=== PATIENT | female | born 1970 | race Hispanic/Latino ===

== ENCOUNTER → 2017-12-11 | Outpatient (CLI) | payer BC ==
[~2017-12-11] MED LIST: IOPAMIDOL-370 100 ML VIAL IV ONE
== END | disposition home or self-care (01) ==
LOC: RAH 09:05
PROVIDERS: ATTEND Obstetrics & Gynecology
DX: R31.21 Asymptomatic microscopic hematuria (principal)
CPT/HCPCS: 74400; Q9967

== ENCOUNTER 2019-11-20 13:14 | Emergency (ER) | payer BC ==
[2019-11-20] MEDS ORDERED: CEFTRIAXONE SODIUM 2 GM VIAL ONE (14:30)
[2019-11-20] MEDS ORDERED: SODIUM CHLORIDE 0.9% 1000ML 1,000 ML IV ONE (14:31)
[2019-11-20] MEDS ORDERED: SODIUM CHLORIDE 0.9% 100 ML IV ONE (14:31)
[2019-11-20 15:02] LABS: BASOPHILS % (AUTO) 1.1 % (0.0-5.0); EOSINOPHILS % (AUTO) 1.7 % (0.0-8.0); LYMPHOCYTES % (AUTO) 41.2 % (21.0-51.0); MEAN CORPUSCULAR VOLUME 91.1 fL (79-99); MONOCYTES % (AUTO) 7.1 % (3.0-13.0); NEUTROPHILS % (AUTO) 48.7 % (40.0-77.0); PLATELET COUNT (AUTO) 225 K/uL (130-400); RED BLOOD CELL COUNT(AUTO) 4.39 MIL/uL (4.00-5.50); WHITE BLOOD COUNT (AUTO) 5.4 K/uL (4.8-10.8)
[2019-11-20 15:20] LABS: INR 0.93 (0.85-1.15); PROTHROMBIN TIME 10.1 SEC (9.6-11.6)
[2019-11-20 15:34] LABS: CREATININE 0.9 mg/dL (0.5-1.5); POTASSIUM 3.8 mmol/L (3.5-5.1)
[2019-11-20 15:39] LABS: ALBUMIN 3.7 g/dL (3.5-5.0); BILIRUBIN,DIRECT 0.1 mg/dL (0.0-0.3); BILIRUBIN,TOTAL 0.2 mg/dL (0.2-1.0); TOTAL PROTEIN, SERUM 7.1 g/dL (6.0-8.3)
== END 2019-11-20 17:55 | disposition home or self-care (01) ==
LOC: EDH 13:14
DX: B34.9 Viral infection, unspecified (principal); R53.1 Weakness; Z20.828 Contact with and (suspected) exposure to other viral communicable diseases; Z88.5 Allergy status to narcotic agent; Z90.49 Acquired absence of other specified parts of digestive tract; Z90.710 Acquired absence of both cervix and uterus; Z88.8 Allergy status to other drugs, medicaments and biological substances
CPT/HCPCS: 36415; 71045; 80048; 80076; 82550; 83605; 84484; 85025; 85610; 85730; 87040 ×2; 87633; 87635; 87804 ×2; 93005; 96374; 99285; J0696; J7030; 96372

== ENCOUNTER → 2019-12-24 | Outpatient (CLI) | payer BC | END | disposition home or self-care (01) | LOC: RAH 12:54 | PROVIDERS: ATTEND Family Medicine | DX: M19.011 Primary osteoarthritis, right shoulder (principal); M47.22 Other spondylosis with radiculopathy, cervical region; M25.78 Osteophyte, vertebrae | CPT/HCPCS: 72141; 73221 ==

== ENCOUNTER → 2020-01-27 | Outpatient (CLI) | payer BC | END | disposition home or self-care (01) | LOC: RAH 13:57 | PROVIDERS: ATTEND Otolaryngology Plastic Surgery within the Head & Neck | DX: E04.1 Nontoxic single thyroid nodule (principal) ==

== ENCOUNTER 2020-02-22 16:50 | Emergency (ER) | payer BC ==
[2020-02-22] MEDS ORDERED: ALBUTEROL INHALER 90MCG/INH IH ONE (17:13)
[2020-02-22] MEDS ORDERED: AZITHROMYCIN 250 MG TABLET PO ONE (17:14)
[2020-02-22] MEDS ORDERED: ACETAMINOPHEN EXTRA STRENGTH 500 MG TABLET ONE (17:14)
== END 2020-02-22 17:38 | disposition home or self-care (01) ==
LOC: EDH 16:50
DX: U07.1 COVID-19 (principal); E78.00 Pure hypercholesterolemia, unspecified; Z88.6 Allergy status to analgesic agent; Z88.8 Allergy status to other drugs, medicaments and biological substances; Z98.51 Tubal ligation status; Z90.710 Acquired absence of both cervix and uterus

== ENCOUNTER → 2020-06-09 | Outpatient (CLI) | payer BC | END | disposition home or self-care (01) | LOC: RAH 14:03 | PROVIDERS: ATTEND Orthopaedic Surgery | DX: M75.101 Unspecified rotator cuff tear or rupture of right shoulder, not specified as traumatic (principal); M25.511 Pain in right shoulder | CPT/HCPCS: 73221 ==

== ENCOUNTER 2020-09-12 18:40 | Emergency (ER) | payer BC ==
[2020-09-12] MEDS ORDERED: HYDROCODONE/ACETAMINOPHEN 10/325 MG TAB ONE (19:22)
== END 2020-09-12 20:01 | disposition home or self-care (01) ==
LOC: EDH 18:40
DX: S83.92XA Sprain of unspecified site of left knee, initial encounter (principal); Z88.8 Allergy status to other drugs, medicaments and biological substances; Z88.5 Allergy status to narcotic agent; Z90.49 Acquired absence of other specified parts of digestive tract; Z90.710 Acquired absence of both cervix and uterus; W18.39XA Other fall on same level, initial encounter; Y93.55 Activity, bike riding; Y92.89 Other specified places as the place of occurrence of the external cause; Y99.8 Other external cause status
CPT/HCPCS: 29505; 73562; 73590

== ENCOUNTER 2022-01-01 09:29 | Emergency (ER) | payer BC ==
[~2022-01-01] VITALS: Ht 160 cm; Wt 79.4 kg
[2022-01-01] MEDS ORDERED: IPRATROPIUM/ALBUTEROL SULFATE 3 ML SOLUTION IH ONE (10:00)
[2022-01-01] MEDS ORDERED: SOLU-MEDROL 125MG VIAL IVP ONE (10:00)
[2022-01-01 10:33] LABS: INFLUENZA TYPE A NEGATIVE FOR TYPE A (NEG)
[2022-01-01 10:34] LABS: INFLUENZA TYPE B NEGATIVE FOR TYPE B (NEG)
[2022-01-01] MEDS ORDERED: ALBU4TAB12 PO (11:23)
[2022-01-01] MEDS ORDERED: MONT-39 PO (11:23)
[2022-01-01] MEDS ORDERED: PRED5TAB PO (11:23)
[2022-01-01 14:54] VITALS: BP 129/75
== END 2022-01-01 15:05 | disposition home or self-care (01) ==
LOC: EDH 09:29
DX: J06.9 Acute upper respiratory infection, unspecified (principal); J45.909 Unspecified asthma, uncomplicated; Z20.822 Contact with and (suspected) exposure to COVID-19; Z88.5 Allergy status to narcotic agent; Z86.16 Personal history of COVID-19
CPT/HCPCS: 71045; 87635; 87804 ×2; 87880; 94640; 96374; 99284; C9803; J2930

== ENCOUNTER 2022-02-10 22:21 | Emergency (ER) | payer BC ==
[~2022-02-10] VITALS: Ht 160 cm; Wt 79.4 kg
[~2022-02-10 22:21] MED LIST changes: +ALBU4TAB12 PO; -IOPAMIDOL-370 100 ML VIAL IV ONE; +MONT-39 PO; +PRED5TAB PO
[2022-02-10 22:58] LABS: BASOPHILS % (AUTO) 0.8 % (0.0-5.0); EOSINOPHILS % (AUTO) 0.8 % (0.0-8.0); HEMATOCRIT 39.5 % (36-48); LYMPHOCYTES % (AUTO) 13.6 % (21.0-51.0); MEAN CORPUSCULAR HEMOGLOBIN 30.3 pg (27.0-33.0); MEAN CORPUSCULAR HGB CONC 33.2 g/dL (32.0-36.0); MEAN CORPUSCULAR VOLUME 91.2 fL (79-99); MONOCYTES % (AUTO) 7.5 % (3.0-13.0); PLATELET COUNT (AUTO) 207 K/uL (130-400); RED BLOOD CELL COUNT(AUTO) 4.33 MIL/uL (4.00-5.50); WHITE BLOOD COUNT (AUTO) 7.1 K/uL (4.8-10.8)
[2022-02-10] MEDS ORDERED: ACETAMINOPHEN 500 MG TABLET PO ONE (23:00)
[2022-02-10] MEDS ORDERED: ALBUTEROL INHALER 90MCG/INH IH ONE (23:00)
[2022-02-10] MEDS ORDERED: 0.9% NACL 500ML IV.SOLN 500 ML IV ONE (23:00)
[2022-02-10 23:10] LABS: CREATININE 0.8 mg/dL (0.5-1.5)
[2022-02-10 23:19] LABS: ALBUMIN 3.8 g/dL (3.5-5.0); BILIRUBIN,TOTAL 0.3 mg/dL (0.2-1.0); TOTAL PROTEIN, SERUM 6.9 g/dL (6.0-8.3)
[2022-02-10 23:38] LABS: APPEARANCE,URINE CLEAR (CLEAR); BILIRUBIN,URINE NEGATIVE (NEGATIVE); COLOR,URINE YELLOW (YELLOW); GLUCOSE, URINE (UA) NEGATIVE (NEGATIVE); KETONES,URINE NEGATIVE (NEGATIVE); LEUKOCYTE ESTERASE ,URINE NEGATIVE (NEGATIVE); NITRATE,URINE NEGATIVE (NEGATIVE); OCCULT BLOOD,URINE NEGATIVE (NEGATIVE); PH,URINE 7.5 (5.0-8.0); PROTEIN,URINE NEGATIVE (NEGATIVE)
[2022-02-11 00:43] VITALS: BP 130/82
[2022-02-11] MEDS ORDERED: ALBU8.5H8 IH (00:51)
== END 2022-02-11 01:06 | disposition home or self-care (01) ==
LOC: EDH 22:21
DX: U07.1 COVID-19 (principal); J45.909 Unspecified asthma, uncomplicated; J06.9 Acute upper respiratory infection, unspecified; Z79.52 Long term (current) use of systemic steroids; Z88.5 Allergy status to narcotic agent
CPT/HCPCS: 36415; 71045; 80053; 81003; 82550; 83605; 84484; 85025; 87040 ×2; 87635; 87804 ×2; 96360; 99283; C9803; J7040; 96365

== ENCOUNTER 2023-08-17 11:56 | Emergency (ER) | payer BC ==
[~2023-08-17] VITALS: Ht 160 cm; Wt 72.6 kg
[~2023-08-17 11:56] MED LIST changes: +ALBU8.5H8 IH
[2023-08-17 14:40] LABS: BASOPHILS # (AUTO) 0.05 K/uL (0.00-0.20); BASOPHILS % (AUTO) 0.6 % (0.0-5.0); EOSINOPHILS # (AUTO) 0.06 K/uL (0.00-0.70); EOSINOPHILS % (AUTO) 0.8 % (0.0-8.0); HEMATOCRIT 42.6 % (36-48); IMMATURE GRANULOCYTE ABSOLUTE 0.03 K/uL (0-1); LYMPHOCYTES # (AUTO) 2.1 K/uL (1.0-4.8); LYMPHOCYTES % (AUTO) 25.9 % (21.0-51.0); MEAN CORPUSCULAR HEMOGLOBIN 30.8 pg (27.0-33.0); MEAN CORPUSCULAR HGB CONC 33.6 g/dL (32.0-36.0); MEAN CORPUSCULAR VOLUME 91.8 fL (79-99); MONOCYTES # (AUTO) 0.7 K/uL (0.1-1.0); MONOCYTES % (AUTO) 8.2 % (3.0-13.0); NEUTROPHILS # (AUTO) 5.1 K/uL (1.8-7.7); NEUTROPHILS % (AUTO) 64.1 % (40.0-77.0); PLATELET COUNT (AUTO) 286 K/uL (130-400); RED BLOOD CELL COUNT(AUTO) 4.64 MIL/uL (4.00-5.50); RED CELL DISTRIBUTION WIDTH 13.7 % (11.0-15.5); WHITE BLOOD COUNT (AUTO) 7.9 K/uL (4.8-10.8)
[2023-08-17 14:44] LABS: POTASSIUM 3.6 mmol/L (3.5-5.1)
[2023-08-17 14:53] LABS: ALBUMIN 4.3 g/dL (3.5-5.0); BILIRUBIN,TOTAL 0.4 mg/dL (0.2-1.0); TOTAL PROTEIN, SERUM 7.8 g/dL (6.0-8.3)
[2023-08-17] MEDS ORDERED: HYDROXYZINE 25 MG TABLET PO ONE (15:00)
[2023-08-17 16:18] LABS: APPEARANCE,URINE CLOUDY (CLEAR); BILIRUBIN,URINE NEGATIVE (NEGATIVE); COLOR,URINE YELLOW (YELLOW); GLUCOSE, URINE (UA) NEGATIVE (NEGATIVE); KETONES,URINE NEGATIVE (NEGATIVE); LEUKOCYTE ESTERASE ,URINE NEGATIVE Leu/uL (NEGATIVE); NITRATE,URINE NEGATIVE (NEGATIVE); OCCULT BLOOD,URINE NEGATIVE (NEGATIVE); PROTEIN,URINE 30 mg/dL (NEGATIVE)
[2023-08-17 17:04] LABS: ADD UA MICROSCOPIC YES
[2023-08-17] MEDS ORDERED: HYDR-3421 PO (17:09)
[2023-08-17 17:12] VITALS: BP 107/65; PULSE 72; RESP 14; O2SAT 98
[2023-08-17 17:16] LABS: BACTERIA,URINE RARE /HPF (None Seen); MUCUS,URINE MANY LPF (None Seen); SQUAMOUS EPITHELIAL CELL,UR MOD /HPF (0-2)
== END 2023-08-17 17:19 | disposition home or self-care (01) ==
LOC: EDH 11:56
DX: F45.8 Other somatoform disorders (principal); F41.9 Anxiety disorder, unspecified; Z79.52 Long term (current) use of systemic steroids; Z86.16 Personal history of COVID-19; Z88.5 Allergy status to narcotic agent
CPT/HCPCS: 36415; 71045; 80053; 81001; 81025; 84484; 85025; 87088; 93005

== ENCOUNTER 2024-07-10 17:05 | Emergency (ER) | payer BC ==
[~2024-07-10] VITALS: Ht 157.5 cm; Wt 67.6 kg
[~2024-07-10 17:05] MED LIST changes: +HYDR-3421 PO
[2024-07-10 17:50] LABS: BASOPHILS # (AUTO) 0.05 K/uL (0.00-0.20); BASOPHILS % (AUTO) 0.7 % (0.0-5.0); EOSINOPHILS # (AUTO) 0.11 K/uL (0.00-0.70); EOSINOPHILS % (AUTO) 1.6 % (0.0-8.0); HEMATOCRIT 37.3 % (36-48); IMMATURE GRANULOCYTE ABSOLUTE 0.01 K/uL (0-1); LYMPHOCYTES # (AUTO) 2.4 K/uL (1.0-4.8); LYMPHOCYTES % (AUTO) 34.5 % (21.0-51.0); MEAN CORPUSCULAR HGB CONC 33.5 g/dL (32.0-36.0); MEAN CORPUSCULAR VOLUME 95.4 fL (79-99); MONOCYTES # (AUTO) 0.6 K/uL (0.1-1.0); MONOCYTES % (AUTO) 9.1 % (3.0-13.0); NEUTROPHILS # (AUTO) 3.8 K/uL (1.8-7.7); PLATELET COUNT (AUTO) 202 K/uL (130-400); RED BLOOD CELL COUNT(AUTO) 3.91 MIL/uL (4.00-5.50); RED CELL DISTRIBUTION WIDTH 14.2 % (11.0-15.5)
--- NOTE | 2024-07-10 17:53 | ERN ---
ED Note History of Present Illness Stated Complaint: CHEST PAIN,BLURRED VISION Chief Complaint: Chest Pain Time Seen by MD: 17:08 Time Seen by Midlevel: 17:08 Dictation: The patient is a 53-year-old female with a history of seizures, hysterectomy who presents to the emergency department with complaints of on and off chest pain for three weeks. Patient reports pain to be midsternal lasting about 10 seconds and reports feeling like needles sensation. Patient reports last episode happened at 5:00 p.m.. Patient not currently having any chest pain. Denies any nausea, vomiting, shortness of breath. Patient reports that she has been under a lot of stress because her sister is having a lung transplant. Allergies: Coded Allergies: metoclopramide (Unverified Allergy, Unknown, 11/20/19) morphine (Unverified Allergy, Unknown, 11/20/19) Home Meds Active Scripts Hydroxyzine HCl (Hydroxyzine HCl) 25 Mg Tablet, 25 MG PO TID, #9 TAB Prov:MEHDI SANTIAGO V BLUE LINE OPERATOR 08/17/23 Albuterol Sulfate (Proair Hfa) 8.5 Gm Hfa.aer.ad, 2 PUFF IH Q4HPRN PRN for WHEEZING, #1 INHALER 0 Refills Prov:SNEHA SINGH MD 02/11/22 Albuterol Sulfate (Albuterol Tab) 4 Mg Tablet, 4 MG PO BID for 5 Days, #10 TAB Prov:NORA BARNARD MD 01/01/22 Montelukast Sodium (Montelukast Sodium) 10 Mg Tablet, 10 MG PO bed time for 30 Days, #30 TAB Prov:NORA BARNARD MD 01/01/22 Prednisone (Prednisone) 5 Mg Tablet, 5 MG PO BID for 7 Days, #14 TAB Prov:NORA BARNARD MD 01/01/22 Past Medical History Past Medical History: Seizure Additional Past Medical Hx: COVID 03/08 Surgical History: Hysterectomy, Other Surgical History Other: BLADDER SX , History: Not Applicable RN Note Reviewed/Agreed w/PFSH: Yes Review of System Dictation Constitutional: Negative for fever,chills, and weight loss Eyes: Negative for injury, pain,redness, and discharge ENT: Negative for injury,pain or swelling Cardiovascular: Negative for palpitations, and edema. Positive for chest pain Respiratory: Negative for shortness of breath, cough, and wheezing, Abdomen/GI: Negative for abdominal pain, nausea, vomiting, diarrhea, and constipation Back: Negative for injury and pain : Negative for injury, bleeding and discharge MS/Extremity: Negative for injury and deformity Skin: Negative for rash, and discoloration Neuro: Negative for headache, weakness, numbness, tingling, and seizure Psych: Negative for suicide ideation, homicidal ideation, and hallucinations Initial Vital Sign VS Vital Signs Date Time Temp Pulse Resp B/P (MAP) Pulse Ox O2 Delivery O2 Flow Rate FiO2 07/10/24 17:12 99.1 78 18 127/75 98 07/10/24 18:08 Room Air* 0 21 Physical Exam Dictation Vital Signs reviewed General Appearance: Alert, oriented x 3, no acute distress, well developed, nourished. Head and Face: non-traumatic. Eyes: PERRL, pink conjunctivas, eyelid no trauma, anterior chamber with arcus senilis. Ears: Pinnas intact and no signs of trauma or erythema ear canals clear and no discharge TM no erythema Nose: No discharge, no bleeding. Oropharynx: Mouth normal, tongue pink. pharynx clear,no erythema, tonsils no exudates, no abscesses noted, mucous membrane moist Neck: Supple, non-tender, no thyromegaly, no masses, no JVD, no bruits Breast:Deferred Chest:No tenderness, no crepitus, no paradoxical movement, no retractions Lungs:Clear, well-ventilated, symmetric, no rales, no wheezing, no rhonchi, no stridor, good breath sounds bilaterally Heart: Regular rate, regular rhythm, no murmur, no gallops Vascular: no peripheral edema, Abdomen: Soft, positive bowel sounds, nondistended, no guarding, nontender, no rebound, no masses no hepatomegaly, no splenomegaly, no Gamble's sign, no hernias. Rectal: Deferred Genital: Deferred Neurological: Normal speech, motor function intact, sensory function intact Musculoskeletal: Neck nontender, full range of motion, back nontender, full range of motion, Extremities: nontender, full range of motion Skin: Color pink, dry, no turgor, no rash, no lacerations, no abrasions, no contusions. Lymphatic: Deferred Results (Laboratory/Radiology) Laboratory/Radiology Laboratory Tests Test 07/10/24 17:45 07/10/24 19:29 White Blood Count 7.0 K/uL (4.8-10.8) Red Blood Count 3.91 MIL/uL (4.00-5.50) L Hemoglobin 12.5 g/dL (12.0-16.0) Hematocrit 37.3 % (36-48) Mean Corpuscular Volume 95.4 fL (79-99) Mean Corpuscular Hemoglobin 32.0 pg (27.0-33.0) Mean Corpuscular Hemoglobin Concent 33.5 g/dL (32.0-36.0) Red Cell Distribution Width 14.2 % (11.0-15.5) Platelet Count 202 K/uL (130-400) Mean Platelet Volume 10.1 fL (7.5-10.5) Immature Granulocyte % (Auto) 0.1 % (0-1) Neutrophils (%) (Auto) 54.0 % (40.0-77.0) Lymphocytes (%) (Auto) 34.5 % (21.0-51.0) Monocytes (%) (Auto) 9.1 % (3.0-13.0) Eosinophils (%) (Auto) 1.6 % (0.0-8.0) Basophils (%) (Auto) 0.7 % (0.0-5.0) Neutrophils # (Auto) 3.8 K/uL (1.8-7.7) Lymphocytes # (Auto) 2.4 K/uL (1.0-4.8) Monocytes # (Auto) 0.6 K/uL (0.1-1.0) Eosinophils # (Auto) 0.11 K/uL (0.00-0.70) Basophils # (Auto) 0.05 K/uL (0.00-0.20) Absolute Immature Granulocyte (auto 0.01 K/uL (0-1) Nucleated Red Blood Cells 0.0 % (0.0-0.19) Sodium Level 143 mmol/L (136-145) Potassium Level 3.8 mmol/L (3.5-5.1) Chloride Level 107 mmol/L (101-111) Carbon Dioxide Level 27 mmol/L (21-32) Blood Urea Nitrogen 12 mg/dL (7-18) Creatinine 0.8 mg/dL (0.5-1.0) Glomerular Filtration Rate Calc 88 mL/min (>90) Random Glucose 88 mg/dL (70-105) Total Calcium 8.3 mg/dL (8.5-10.1) L Troponin I High Sensitivity 9 ng/L (4-50) 11 ng/L (4-50) REASON: cp ORDERING PHYSICIAN: CHUNG AVILA BLUE LINE OPERATOR PROCEDURE: CXR1VW - CHEST 1VW CHEST 1VW HISTORY: Chest pain COMPARISON: 08/17/2023 FINDINGS: A frontal projection of the chest was obtained. No acute pulmonary infiltrates is seen. The heart is normal in size. Prominent interstitial markings are seen. Degenerative changes are seen. IMPRESSION: 1. No acute pulmonary infiltrate is seen. Labs Reviewed?: Yes EKG: (+) NSR, (+) rhythm (Sinus rhythm), (+) ID ([id number]) EKG Comment: EKG 07/10/2024 ventricular rate 73, regular rate and rhythm, normal sinus rhythm, no STEMI. ED Course ED Course Orders Procedure Category Date Status Time Cbc With Differential LAB 07/10/24 Complete 17:36 Chest 1vw RAD 07/10/24 Resulted 17:36 12 Lead Ekg Tracing- EKG 07/10/24 Logged Technical 17:36 Troponin I High LAB 07/10/24 Complete Sensitivity 17:36 Aspirin 325mg Tab PHA 07/10/24 Complete (Aspirin 325mg Tab) 18:00 Basic Metabolic Panel LAB 07/10/24 Complete 17:36 Troponin I High LAB 07/10/24 Complete Sensitivity 18:20 Current Medications Medications (Trade) Dose Ordered Sig/[place] Route PRN Reason Start Time Stop Time Status Last Admin Dose Admin Aspirin (Aspirin 325mg Tab) 325 mg ONCE ONCE PO 07/10/24 18:00 07/10/24 18:01 DC 07/10/24 18:07 Vital Signs Date Time Temp Pulse Resp B/P (MAP) Pulse Ox O2 Delivery O2 Flow Rate FiO2 07/10/24 19:20 98.8 64 18 120/78 96 Room Air* 0 07/10/24 18:08 98.8 83 18 124/79 96 Room Air* 0 21 07/10/24 17:12 99.1 78 18 127/75 98 HEART Score Response (Comments) Value History: Low suspicion (0) 0 EKG: Normal 0 Age: 45-65yrs (+1) 1 Risk Factors: No known risk factors (0) 0 Initial Troponin: Normal limit (0) 0 HEART Score Risk: Low Risk for MACE (1-3) Total 1 Medical Decision Making MDM The patient is a 53-year-old female with a history of seizures, hysterectomy who presents to the emergency department with complaints of on and off chest pain for three weeks. Patient reports pain to be midsternal lasting about 10 seconds and reports feeling like needles sensation. Patient reports last episode happened at 5:00 p.m.. Patient not currently having any chest pain. Denies any nausea, vomiting, shortness of breath. Patient reports that she has been under a lot of stress because her sister is having a lung transplant. CBC showed no leukocytosis, no anemia, Differential diagnosis: ACS, anxiety, tachyarrhythmia, dehydration, electrolyte imbalance, chemistry showed no electrolyte imbalance, troponin negative x2. Patient currently not having any chest pain. Low cardiac score. Need for hospitalization: Patient does not meet criteria for hospitalization. There are no social concerns with this patient. DX & DISP Disposition: Discharge Departure Impression: Primary Impression: Atypical chest pain Additional Impression: Stress reaction Condition: Stable Additional Instructions: Please follow up with PCP in 1-2 days. Please return to ER if symptoms worsen. FOLLOW-UP WITH PRIMARY CARE PROVIDER IN 1 TO 2 DAYS. TAKE MEDICATIONS DIRECTED HERE IN THE EMERGENCY ROOM. OKAY TO CONTINUE HOME MEDICATIONS UNLESS OTHERWISE DISCUSSED DURING YOUR VISIT IN THE EMERGENCY ROOM TODAY. RETURN TO YOUR NEAREST EMERGENCY ROOM IF SYMPTOMS WORSEN OR IF THERE IS NO IMPROVEMENT. CALL 911 IF YOU NEED IMMEDIATE ASSISTANCE. TAKE TYLENOL OR MOTRIN [id number] NEEDED AND IF NO CONTRAINDICATIONS ARE PRESENT. INCREASE ORAL HYDRATION. A WOUND CULTURE OR URINE CULTURE WAS ORDERED HERE IN THE EMERGENCY ROOM DEPARTMENT PLEASE FOLLOW-UP WITH PRIMARY CARE PROVIDER AND ADVISE THEM TO GET REPEAT PORTS FROM OUR FACILITY. IF YOU HAD ANY LUTHER WRAP/SPLINTS THAT WERE APPLIED HERE, PLEASE DO NOT REMOVE THEM UNTIL YOU SEE YOUR PRIMARY CARE OR SPECIALTY. Referrals: CRISTINA TAVAREZ MD (PCP) Time of Disposition: 20:05 I have reviewed the case, and I agree with, Diagnosis and Plan CHUNG AVILA [facility] Jul 10, 2024 17:53
[2024-07-10 17:59] LABS: CREATININE 0.8 mg/dL (0.5-1.0); POTASSIUM 3.8 mmol/L (3.5-5.1)
[2024-07-10] MEDS: ASPIRIN 325MG TAB PO ONE (18:07)
--- NOTE | 2024-07-10 18:08 | HMCIMG ---
CHEST 1VW HISTORY: Chest pain COMPARISON: 08/17/2023 FINDINGS: A frontal projection of the chest was obtained. No acute pulmonary infiltrates is seen. The heart is normal in size. Prominent interstitial markings are seen. Degenerative changes are seen. IMPRESSION: 1. No acute pulmonary infiltrate is seen.
[2024-07-10 19:20] VITALS: BP 120/78; PULSE 64; RESP 18; TEMP 98.8; O2SAT 96
--- NOTE | 2024-07-11 06:45 | EKG ---
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
== END 2024-07-10 20:16 | disposition home or self-care (01) ==
LOC: EDH 17:05
DX: R07.89 Other chest pain (principal); F43.9 Reaction to severe stress, unspecified; I21.9 Acute myocardial infarction, unspecified; Z79.52 Long term (current) use of systemic steroids; Z88.5 Allergy status to narcotic agent; Z90.710 Acquired absence of both cervix and uterus
CPT/HCPCS: 36415; 71045; 80048; 84484; 85025; 93005; 99284; 99285